=== PATIENT | female | born 1985 | race Caucasian/White ===

== ENCOUNTER 2019-04-24 10:06 | Day surgery (SDC) | payer OTHER ==
[2019-04-21 09:30] VITALS: BMI 35.2
[2019-04-24 14:33] VITALS: TEMP 98
[2019-04-24 14:44] VITALS: BP 110/68; PULSE 78
--- NOTE | 2019-04-26 17:13 | PATH ---
Surgical Pathology Report Patient Name: DUNG PURCELL [facility]. Rec. #: [id number] /Age/Gender: 1985 (Age: 34) / F Account: [id number] Location: [facility] Taken: 04/24/2019 Received: 04/24/2019 Reported: 04/26/2019 Physicians: Santino Bear M.D. Specimen(s) Received A: SECOND PORTION DUODENUM B: GASTRIC ANTRUM Clinical History GERD Postoperative diagnosis: Gastritis Final Diagnosis A. DUODENUM, SECOND PORTION, BIOPSY: DUODENAL MUCOSA WITHOUT SIGNIFICANT PATHOLOGIC FINDINGS. B. GASTRIC ANTRUM, BIOPSY: GASTRIC ANTRAL MUCOSA WITH MILD CHRONIC GASTRITIS. IMMUNOHISTOCHEMICAL STAIN FOR H. PYLORI IS NEGATIVE. Electronically Signed Darcie Jeter M.D. Gross Description A. Received in formalin, labeled "biopsy second portion of duodenum" are 2 luna, irregular portions of soft tissue averaging 0.4 cm. in greatest dimension. The specimens are submitted in toto in one cassette. B. Received in formalin, labeled "biopsy gastric antrum" are 2 luna, irregular portions of soft tissue measuring 0.3 and 0.4 cm. in greatest dimension. The specimens are submitted in toto in one cassette. 04/25/2019 [facility]04/25/2019
== END 2019-04-24 13:05 | disposition home or self-care (01) ==
LOC: FASU-ENDO 10:06
PROVIDERS: ATTEND Internal Medicine Gastroenterology
PROC: 0DB68ZX Excision of Stomach, Via Natural or Artificial Opening Endoscopic, Diagnostic (ICD-10-PCS; 2019-04-24)
PROC: 0DB98ZX Excision of Duodenum, Via Natural or Artificial Opening Endoscopic, Diagnostic (ICD-10-PCS; principal; 2019-04-24 11:53)
DX: K29.50 Unspecified chronic gastritis without bleeding (principal)
CPT/HCPCS: 84703; 88305-TC; 88342-TC

== ENCOUNTER 2023-07-24 12:35 | Emergency (ER) | payer OTHER ==
[2023-07-24 12:46] VITALS: BP 124/73; PULSE 79; RESP 20; TEMP 97.9; BMI 30.9
[2023-07-24] MEDS ORDERED: ONDANSETRON 4 MG/2 ML VIAL ONE (13:24)
[2023-07-24] MEDS: LACTATED RINGERS SOLUTION 1000 ML INFUS.BAG IV ONE (14:05)
[2023-07-24] MEDS: ONDANSETRON 4 MG/2 ML VIAL IVPUSH ONE (14:05)
[2023-07-24 14:23] LABS: BASO % 0.5 % (0-2.0); EOS % 0.5 % (0-4.5); HEMATOCRIT 40.7 % (32.4-45.2); LYMPH % 13.2 % (8-40); MCHC 34.4 g/dl (32.0-36.0); MEAN CELL VOLUME 84.2 fl (80-96); MEAN PLT VOLUME 8.7 fl (7.5-11.1); MONO % 6.4 % (3.8-10.2); NEUT % 79.4 % (42.8-82.8); PLATELET COUNT 315 10^3/uL (134-434); RBC 4.84 M/mm3 (3.60-5.2); RDW 13.6 % (11.6-15.6); WHITE BLOOD COUNT 7.3 K/mm3 (4.0-10.0)
[2023-07-24 14:53] LABS: POTASSIUM 5.1 mmol/L (3.5-5.1)
[2023-07-24 14:56] LABS: CALCIUM 9.6 mg/dL (8.5-10.1)
[2023-07-24 14:57] LABS: ALBUMIN 4.3 g/dl (3.4-5.0); BLOOD UREA NITROGEN 12.7 mg/dL (7-18)
[2023-07-24 15:00] LABS: CREATININE 0.7 mg/dL (0.55-1.3)
[2023-07-24 15:01] LABS: TOT PROT 8.4 g/dl (6.4-8.2)
[2023-07-24 15:03] LABS: BILIRUBIN,TOTAL 0.6 mg/dL (0.2-1)
== END 2023-07-24 15:56 | disposition home or self-care (01) ==
LOC: JER 12:35
PROC: 3E033NZ Introduction of Analgesics, Hypnotics, Sedatives into Peripheral Vein, Percutaneous Approach (ICD-10-PCS; principal; 2023-07-24)
DX: R55 Syncope and collapse (principal); R11.0 Nausea
CPT/HCPCS: 36415; 80053; 82962; 84703; 85025; 93005; 93010; 99284-25